=== PATIENT | female | born 1955 | race Caucasian/White ===

== ENCOUNTER → 2017-09-09 | Outpatient (CLI) | payer BC ==
[~2017-09-09] VITALS: Ht 165.9 cm; Wt 75.0 kg
[~2017-09-09] MED LIST: BACTRIM,SEPT1 TABLET; CALCIO DEL MAR500 MG PO; DILAUDID2 MG PO; FLOMAX0.4 MG PO; MAXALT10 MG PO; MULTIVITAMIN1 EAC2 PO; NAPROSYN500 MG PO; PERCOCET 5/31 TABLET PO; PHENAZOPYRIDIN100 MG; PROMETHAZINE HC50 M1 PO; SPRIX1 EACH NS; VITAMIN D2000 INTUN PO; ZOFRAN4 MG PO
[2017-09-09 11:46] VITALS: BP 113/61
== END | disposition home or self-care (01) ==
LOC: IVINF 08-31 15:00
DX: M81.0 Age-related osteoporosis without current pathological fracture (principal)
CPT/HCPCS: 96365; J3489